=== PATIENT | male | born 1945 | race Caucasian/White ===

== ENCOUNTER 2020-12-09 12:39 | Emergency (ER) | payer OTHER, MEDICARE ==
[~2020-12-09] VITALS: Ht 177.8 cm; Wt 68.2 kg
[2020-12-09 13:33] LABS: BASOPHILS % (AUTO) 0.2 % (0-1); EOSINOPHILS % (AUTO) 0.2 % (0-6); HEMATOCRIT 23.1 % (42.0-52.0); HEMOGLOBIN 7.5 g/dl (14.0-17.9); LYMPHOCYTES # (AUTO) 0.6 X10'3 (1.1-4.8); LYMPHOCYTES % (AUTO) 6.8 % (21-51); MEAN CORPUSCULAR HGB CONC 32.6 g/dL (33.0-36.5); MEAN CORPUSCULAR VOLUME 79.6 FL (78-98); MEAN PLATELET VOLUME 8.4 FL (7.4-10.4); MONOCYTES % (AUTO) 10.6 % (2-12); NEUTROPHILS # (AUTO) 7.8 X10'3 (1.8-7.7); NEUTROPHILS % (AUTO) 82.2 % (42-75); PLATELET COUNT 291 X10'3 (140-440); RED CELL DISTRIBUTION WIDTH 17.1 % (11.5-14.5); WHITE BLOOD COUNT 9.5 X10'3 (4.5-11.0)
[2020-12-09 13:47] LABS: ALANINE AMINOTRANSFERASE 11 U/L (12-78); ALBUMIN 2.2 G/DL (3.4-5.0); ALBUMIN/GLOBULIN RATIO 0.5 (1.1-1.5); ALKALINE PHOSPHATASE 109 IU/L (46-116); ANION GAP 8 (8-16); ASPARTATE AMINO TRANSFERASE 13 U/L (10-37); BILIRUBIN,TOTAL 0.3 MG/DL (0.1-1.0); BLOOD UREA NITROGEN 33 MG/DL (7-18); BUN/CREATININE RATIO 18.6 (5.4-32.0); CALCIUM 8.9 MG/DL (8.5-10.1); CHLORIDE 103 MMOL/L (99-107); CREATININE 1.77 MG/DL (0.60-1.10); GLUCOSE 317 MG/DL (70-104); POTASSIUM 4.4 MMOL/L (3.5-5.1); SODIUM 134 MMOL/L (135-145); TOTAL CARBON DIOXIDE 22.8 MMOL/L (24-32); eGFR 38 ML/MIN
[2020-12-09] MEDS ORDERED: normal saline 1000ML IV soln IVB ONE (19:15)
[2020-12-09] MEDS ORDERED: iohexol 300mg/ml 100ml inj. ONE (22:20)
[2020-12-09 22:35] LABS: BASOPHILS % (AUTO) 0.1 % (0-1); EOSINOPHILS % (AUTO) 0.1 % (0-6); HEMATOCRIT 23.7 % (42.0-52.0); HEMOGLOBIN 7.6 g/dl (14.0-17.9); LYMPHOCYTES # (AUTO) 0.3 X10'3 (1.1-4.8); LYMPHOCYTES % (AUTO) 3.4 % (21-51); MEAN CORPUSCULAR HEMOGLOBIN 25.9 PG (27.0-31.0); MEAN CORPUSCULAR HGB CONC 32.2 g/dL (33.0-36.5); MEAN CORPUSCULAR VOLUME 80.3 FL (78-98); MEAN PLATELET VOLUME 8.6 FL (7.4-10.4); MONOCYTES # (AUTO) 0.8 X10'3 (0-0.9); MONOCYTES % (AUTO) 8.6 % (2-12); NEUTROPHILS # (AUTO) 8.4 X10'3 (1.8-7.7); NEUTROPHILS % (AUTO) 87.8 % (42-75); PLATELET COUNT 295 X10'3 (140-440); RED BLOOD COUNT 2.95 X10'6 (4.70-6.10); RED CELL DISTRIBUTION WIDTH 17.9 % (11.5-14.5); WHITE BLOOD COUNT 9.6 X10'3 (4.5-11.0)
[2020-12-09 22:37] VITALS: BP 156/59
== END 2020-12-09 23:59 | disposition home or self-care (01) ==
LOC: ER 12:40
DX: S70.12XA Contusion of left thigh, initial encounter (principal); D64.9 Anemia, unspecified; Z79.01 Long term (current) use of anticoagulants; Z95.5 Presence of coronary angioplasty implant and graft; Z89.422 Acquired absence of other left toe(s); X58.XXXA Exposure to other specified factors, initial encounter; Y93.89 Activity, other specified; Y92.89 Other specified places as the place of occurrence of the external cause; Y99.8 Other external cause status
CPT/HCPCS: 36415; 73701; 80053; 85025; 86885; 86900; 86901; 93970; 99285; Q9967

== ENCOUNTER 2021-03-09 07:53 | Day surgery (SDC) | payer OTHER, MEDICARE ==
[2021-03-09] VITALS (10 sets, daily range): BP systolic 119–160; BP diastolic 55–80
[~2021-03-09] VITALS: Ht 177.8 cm; Wt 74.0 kg
[2021-03-09] MEDS: ringers solution, lacted 1,000 ML IV SCH ×2 (05:00→08:01)
[~2021-03-09 07:53] MED LIST: AMLO2.5T2 NG; ATOR80TA NG; BUPIVAcaine/PF 2.5 mg/ml (0.25%) 30ml vial ONE; BUPR100T13 NG; CALC0.258 NG; CARV3.12 NG; CHOL100046 NG; CYAN-51 NG; DAPT500V6 IV; DICL20GE TOP; DOCU1ENE3 PR; DOCU50LI NG; FER300L NG; GABA300S NG; HYDR-3965 NG; INSU100I45 SQ; ISOS10TA8 NG; LANTUS SQ; LINE600T11 NG; MELA3TAB39 NG; METO-292 NG; NITR0.4T51 SL; PANT40VI2 IV; POLY119P2 NG; SENN8.6T19 NG; SODI480S2 TOP; cefazolin/dext.iso 2gm/50ml 50 ML IV ONE; dextrose 5%-normal saline 1,000 ML IV SCH; famotidine 20mg tablet PO ONE; ipratropium/albuterol 3ml nebule IH ONE
[2021-03-09 08:32] LABS: BASOPHILS % (AUTO) 0.3 % (0-1); EOSINOPHILS # (AUTO) 0.1 X10'3 (0-0.9); EOSINOPHILS % (AUTO) 2.5 % (0-6); LYMPHOCYTES # (AUTO) 0.5 X10'3 (1.1-4.8); MEAN CORPUSCULAR HEMOGLOBIN 30.6 PG (27.0-31.0); MEAN CORPUSCULAR HGB CONC 32.7 g/dL (33.0-36.5); MEAN CORPUSCULAR VOLUME 93.5 FL (78-98); MEAN PLATELET VOLUME 8.8 FL (7.4-10.4); MONOCYTES # (AUTO) 0.4 X10'3 (0-0.9); MONOCYTES % (AUTO) 7.2 % (2-12); NEUTROPHILS # (AUTO) 4.4 X10'3 (1.8-7.7); PRE OP HEMATOCRIT 27.9 % (42.0-52.0); PRE OP PLATELET COUNT 127 X10'3 (140-440); RED BLOOD COUNT 2.98 X10'6 (4.70-6.10); RED CELL DISTRIBUTION WIDTH 21.1 % (11.5-14.5)
[2021-03-09 08:34] LABS: PRE OP HEMOGLOBIN 9.1 g/dL (14.0-17.9)
[2021-03-09 08:39] LABS: PRE OP INR 1.1 INR; PRE OP PROTIME 11.4 SECONDS (9.0-12.0)
[2021-03-09 08:42] LABS: ALBUMIN 2.2 G/DL (3.4-5.0); ALBUMIN/GLOBULIN RATIO 0.5 (1.1-1.5); ALKALINE PHOSPHATASE 101 IU/L (46-116); BLOOD UREA NITROGEN 54 MG/DL (7-18); BUN/CREATININE RATIO 46.6 (5.4-32.0); CALCIUM 9.3 MG/DL (8.5-10.1); CHLORIDE 108 MMOL/L (99-107); CREATININE 1.16 MG/DL (0.60-1.10); PRE OP ALT 22 U/L (30-65); PRE OP ANION GAP 8 (8-16); PRE OP AST 22 U/L (10-37); PRE OP BILIRUB, TOTAL 0.5 MG/DL (0.0-1.0); PRE OP GLUCOSE 102 MG/DL (70-104); PRE OP POTASSIUM 3.7 MMOL/L (3.4-5.1); PRE OP SODIUM 142 MMOL/L (135-145); TOTAL CARBON DIOXIDE 25.6 MMOL/L (24-32); TOTAL PROTEIN 6.8 G/DL (6.4-8.2); eGFR 61 ML/MIN
[2021-03-09] MEDS ORDERED: fentaNYL/PF 50MCG/1 ML 2ML syringe ONE (09:01)
--- NOTE | 2021-03-09 09:17 | NUR ---
PATIENT ARRIVED FROM [facility] WITH NG CORPAC RIGHT NARES STOPPED. MIDLINE TO LUE RUNNING AT 50CC/HR D5NS, F/C DRAINING CLOUDY YELLOW URINE. BRUISING TO ABDOMEN FROM SQ SHOTS HE STATES. HE HAS NOT HAD HIS PLAVIX FOR A WEEK HE STATES. A&OX4 BUT LETHARGIC AND WEAK, HE DOES NOT AMBULATE OR STAND YET AND IS A MAX ASSIST
[2021-03-09] MEDS ORDERED: rocuronium 10mg/ml inj IV ONE (09:55)
[2021-03-09] MEDS ORDERED: ePHEDrine 50MG/ML INJ. ONE (09:55)
[2021-03-09] MEDS ORDERED: propofol inj 20 ML IV ONE (09:55)
[2021-03-09] MEDS ORDERED: neostigmine methylsulfate 1 MG/ML 10ml vial ONE (09:56)
[2021-03-09] MEDS ORDERED: glycopyrrolate 0.2mg/ml inj ONE (09:56)
[2021-03-09] MEDS ORDERED: sugammadex 200mg/2ml injection IV ONE (09:57)
--- NOTE | 2021-03-09 10:10 | NUR ---
Received from OR via BED , accompanied by Anesthesiologist and report given by Anesthesiolgist. PATIENT WAKING UP , DENIES PAIN, V/S WNL, [facility] INTACT, CORPAC REMOVED IN OR, F/C DRAINIGN CLOUDY YELLOW URINE. MIDLINE IV TO LUE PATENT. LAP SITES LAURA ABDOMEN CDI WITH G TUBE DRESSING CDI
[2021-03-09] MEDS ORDERED: proCHLORperazine 10 MG/2 ml inj IV PRN (10:20)
[2021-03-09] MEDS ORDERED: meperidine/PF 25mg/ml syringe IV PRN ×3 (10:20)
[2021-03-09] MEDS ORDERED: ondansetron/PF 4mg/2ml inj IV PRN (10:20)
[2021-03-09] MEDS ORDERED: morphine 2 MG/ML inj. syringe IV PRN (10:20)
[2021-03-09] MEDS ORDERED: morphine 4 MG/ML inj SYRINge IV PRN (10:20)
[2021-03-09] MEDS ORDERED: ringers solution, lacted 1,000 ML IV SCH (10:20)
--- NOTE | 2021-03-09 12:10 | NUR ---
PATIENT A&OX3 , DENIES PAIN, V/S WNL, [facility] INTACT, F/C DRAINING CLOUDY YELLOW URINE. MIDLINE IV TO LUE PATENT. LAP SITES TO ABDOMEN CDI WITH G TUBE DRESSING. LAST BG 160. [facility] GROUND HERE TO TRANSPORT PATIENT BACK TO [facility] WITH ALL BELONGINGS. REPORT CALLED TO RECLEENAVING RADHA AT [facility]
== END 2021-03-09 12:10 | disposition home or self-care (01) ==
LOC: PAS 07:53 → EDSTATUS 08:45 → PAS 12:10
PROVIDERS: ATTEND Surgery
DX: E46 Unspecified protein-calorie malnutrition (principal); I25.2 Old myocardial infarction; I25.10 Atherosclerotic heart disease of native coronary artery without angina pectoris; E10.22 Type 1 diabetes mellitus with diabetic chronic kidney disease; I12.9 Hypertensive chronic kidney disease with stage 1 through stage 4 chronic kidney disease, or unspecified chronic kidney disease; N18.9 Chronic kidney disease, unspecified; E87.6 Hypokalemia; D64.9 Anemia, unspecified; E10.41 Type 1 diabetes mellitus with diabetic mononeuropathy; Z86.14 Personal history of Methicillin resistant Staphylococcus aureus infection; Z79.899 Other long term (current) drug therapy; Z79.4 Long term (current) use of insulin; Z89.422 Acquired absence of other left toe(s); Z95.1 Presence of aortocoronary bypass graft; Z95.5 Presence of coronary angioplasty implant and graft; Z86.73 Personal history of transient ischemic attack (TIA), and cerebral infarction without residual deficits
CPT/HCPCS: 36415; 43653; 80053; 82948; 85025; 85610; 85730; 86885; 86900; 86901; 94640; 94760; J0690; J2175; J2704; J2710; J3010; J3490; J7030; J7042; J7120; Z7506; Z7512; A4215; A4618; B4087